=== PATIENT | female | born 1970 | race Caucasian/White ===

== ENCOUNTER → 2018-11-07 | Outpatient (CLI) | payer OTHER ==
[2018-11-07 12:43] LABS: African American GFR (CKD) >90 (>60 ml/min/1.73 sqM); Anion Gap 8 mmol/L; Blood Urea Nitrogen 14 mg/dL (7-17); Carbon Dioxide 24 mmol/L (22-30); Chloride 108 mmol/L (98-107); Glucose 92 mg/dL (74-99); Potassium 4.1 mmol/L (3.5-5.1); Sodium 140 mmol/L (137-145)
[2018-11-07 13:10] LABS: Basophils % (A) 1 %; Eosinophils # (A) 0.2 k/uL (0-0.7); Eosinophils % (A) 2 %; HCT 33.4 % (34.0-46.0); HGB 9.9 gm/dL (11.4-16.0); Hypochromasia Marked; Lymphocytes # (A) 1.4 k/uL (1.0-4.8); Lymphocytes % (A) 21 %; MCHC 29.5 g/dL (31.0-37.0); MCV 77.7 fL (80.0-100.0); Mean Platelet Volume 6.9; Monocytes # (A) 0.4 k/uL (0-1.0); Monocytes % (A) 6 %; Neutrophils # (A) 4.4 k/uL (1.3-7.7); Neutrophils % (A) 68 %; Platelet Count 306 k/uL (150-450); Poikilocytosis Slight; RDW 14.8 % (11.5-15.5); WBC 6.5 k/uL (3.8-10.6)
== END | disposition home or self-care (01) ==
LOC: LABPAT 11:23
PROVIDERS: ATTEND Obstetrics & Gynecology
DX: Z01.812 Encounter for preprocedural laboratory examination (principal); D64.9 Anemia, unspecified; D25.9 Leiomyoma of uterus, unspecified; N92.0 Excessive and frequent menstruation with regular cycle
CPT/HCPCS: 36415; 80051; 82565; 82947; 84520; 85025; 87086

== ENCOUNTER 2018-11-13 07:07 | Inpatient (IN) | payer OTHER ==
--- NOTE | 2018-11-09 10:59 | HP ---
HISTORY AND PHYSICAL DATE OF SURGERY: 11/13/2018 HISTORY OF PRESENT ILLNESS: The patient is a 47-year-old 5, para 5-0-0-5 who presented to the office after an initial emergency room visit at [facility] where she presented with a long-standing history of menorrhagia and a hemoglobin in the range of 5.5. She was not admitted for transfusion at that time, but treated with high dose oral contraceptive pills to control any immediate bleeding and then transitioned to once daily in a routine fashion. This led to actually excellent control and she was able to tolerate iron and rebuild her hemoglobin effectively. Examination demonstrates that she has a very large and irregular fibroid uterus. She is interested in definitive treatment and requested hysterectomy. She has a history of 3 previous sections and, given the size as well as the history, is only a candidate for abdominal approach. She was offered the opportunity to attempt to shrink the fibroids with Lupron in advance of potential da Jaret surgery and declined. PAST MEDICAL HISTORY: Significant for menorrhagia and anemia. She also has a congenital history of a ventricular septal defect, which has not caused problems. PAST SURGICAL HISTORY: Significant for section on 3 separate occasions. There are no apparent anesthetic concerns. OBSTETRICAL HISTORY: 5, para 5-0-0-5 with 2 term vaginal deliveries and 3 term sections without any apparent complications. Method of contraception is currently oral contraceptive pills. GYNECOLOGIC HISTORY: Unremarkable with no history of any infections to include STDs. FAMILY HISTORY: Noncontributory. SOCIAL HISTORY: The patient is and works for [employer]. She is a former smoker as early as the beginning of this year. She reports some alcohol and has a former history of multiple different controlled substances or drugs, but denies any current use. CURRENT MEDICATIONS: Current medications include iron daily, an allergy medication daily, a multivitamin daily and Desogen, or generic equivalent, daily. ALLERGIES: No known drug allergies. REVIEW OF SYSTEMS: Review of systems is confined to history of present illness. PHYSICAL EXAMINATION: Vital signs are stable and the patient is afebrile. In general, this is a well- developed, well-nourished white female in no acute distress. HEENT demonstrates PERRLA, EOMI, her oropharynx is clear. Her neck is supple and without adenopathy and the thyroid is normal to palpation. Her heart has regular rhythm and rate without murmur. Her lungs are clear to auscultation bilaterally in all nicolas. Her abdomen is nondistended, soft, nontender, with a palpable mass just below the umbilicus consistent with large fibroid uterus. She does have a deep vertical incisional scar present from her previous surgeries. Her extremities are without any cyanosis, clubbing, or edema and are nontender to palpation bilaterally. Pelvic examination demonstrates the large fibroid uterus as noted above. ASSESSMENT AND PLAN: Fibroid uterus, anemia, menorrhagia: We discussed multiple different options for treatment, particularly as she is currently controlled well on oral contraceptives. She has requested definitive treatment with hysterectomy. She additionally has requested to have her ovaries removed as he is already having symptoms of menopause. As a result, we will plan to proceed with total abdominal hysterectomy with bilateral salpingo-oophorectomy. The risks and complications of these procedures have been thoroughly discussed including the risks for bleeding, bleeding requiring transfusion, infection, and injury to local structures. These specifically include risk for injury to the bowel, bladder, and ureters. Specific attention was paid to the bladder and ureters given her history of multiple sections as well as the irregularity of the fibroid uterus, which could potentially bring the pelvic sidewall into play. She has understood all of this and has agreed to proceed. We therefore are scheduled for IVORY/BSO on the morning of Tuesday, November 13, 2018. MMODL / IJN: [id number] /
[~2018-11-13 07:07] MED LIST: HYDROmorphone 0.5 MG/0.5 ML SYRINGE IVP PRN; LIDOCAINE 1% 20 ML VIAL (10MG/ML) FOR IV START INTRADERMA PRN
[2018-11-13] MEDS: LACTATED RINGERS 1,000 ML IV SCH ×4 (07:40→23:06)
[2018-11-13] MEDS: ONDANSETRON 4 MG/2 ML VIAL IVP ONE ×2 (07:48→18:20)
[2018-11-13] MEDS: DEXAMETHASONE SOD PHOSPHATE 10 MG/ML 1 ML VIAL IV ONE ×2 (07:48→21:46)
[2018-11-13] MEDS ORDERED: MIDAZOLAM (PF) 2 MG/2 ML VIAL IVP ONE ×2 (08:43)
[2018-11-13] MEDS ORDERED: LIDOCAINE 1% INJ 10MG/ML (20 ML MDV) ONE (08:53)
[2018-11-13] MEDS ORDERED: fentaNYL (PF) 50 MCG/ML 2 ML AMP ONE (08:53)
[2018-11-13] MEDS ORDERED: PROPOFOL 10 MG/ML 20 ML VIAL IV ONE (08:53)
[2018-11-13] MEDS ORDERED: MORPHINE SULFATE (PF) 0.3 MG/0.3 ML SYR ONE (08:53)
[2018-11-13] MEDS ORDERED: ePHEDrine SULFATE/0.9% NACL/PF 50 MG/5 ML SYRINGE IV ONE (08:53)
[2018-11-13] MEDS ORDERED: GLYCOPYRROLATE 0.2 MG/ML 2 ML VIAL ONE (08:53)
[2018-11-13] MEDS ORDERED: ROCURONIUM BROMIDE 10 MG/ML 10 ML VIAL IV ONE (08:53)
[2018-11-13] MEDS ORDERED: NEOSTIGMINE 1 MG/ML 10 ML VIAL ONE (08:53)
[2018-11-13] MEDS ORDERED: KETOROLAC 30 MG/ML 1 ML VIAL IVP PRN (09:03)
[2018-11-13] MEDS ORDERED: ONDANSETRON 4 MG/2 ML VIAL IVP PRN (09:03)
[2018-11-13] MEDS ORDERED: SIMETHICONE 80 MG CHEWABLE PO PRN (09:03)
[2018-11-13] MEDS ORDERED: METOCLOPRAMIDE 5 MG/ML 2 ML VIAL IVP PRN (09:03)
[2018-11-13] MEDS ORDERED: diphenhydrAMINE 50 MG/ML 1 ML VIAL IVP PRN ×2 (09:03→11:17)
[2018-11-13] MEDS ORDERED: Acetaminophen-Codeine 300-30mg TAB PO PRN ×2 (09:03)
[2018-11-13] MEDS ORDERED: LACTATED RINGERS 1,000 ML IV ONE ×2 (10:12→11:25)
[2018-11-13] MEDS ORDERED: NALOXONE 0.4 MG/ML 1 ML VIAL IV PRN (11:17)
[2018-11-13] MEDS ORDERED: NALBUPHINE 10 MG/ML (1 ML AMP) IV PRN (11:17)
--- NOTE | 2018-11-13 11:28 | P.OP ---
Date of Procedure: 11/13/18 Preoperative Diagnosis: #1. Symptomatic fibroid uterus #2. Acute and chronic anemia Postoperative Diagnosis: Same plus #3. pelvic adhesive disease Procedure(s) Performed: #1. Total abdominal hysterectomy with bilateral salpingo-oophorectomy #2. Adhesiolysis Anesthesia: ANASTASIYA Surgeon: Jasson Cui Personal Protection Specialist #1: Amaya Gonzalez Estimated Blood Loss (ml): 650 IV fluids (ml): 1,700 Urine output (ml): 200 Pathology: other (Uterus tubes and ovaries) Condition: stable Disposition: PACU Operative Findings: Preoperatively the patient was noted to have a mass to just below the umbilicus consistent with the known fibroid uterus. Intraoperatively, the uterus was extraordinarily bulky with fibroids throughout the fundus and posterior portion of the uterus. Its mobility was significantly diminished by adhesions at the level of the bladder and adnexa likely from her previous sections. The ovaries were otherwise normal to inspection. During the case there was initially some pinkish urine noted in the catheter secondary to multiple manipulations the bladder in an attempt to create visualization. At the end of the case, the urine was clear. The total size of the uterus was approximately 20+ centimeters from cervix to fundus. It was removed in 2 pieces in order to remove the bulk of the fundus to create better visualization of the pelvis. The entire cervix appeared to have been removed. Description of Procedure: The patient was prepped and draped in usual fashion after general endotracheal anesthesia was administered by the anesthesiologist. A pre-existing vertical incision was used from just below the umbilicus to just at the pubic symphysis and the abdomen was entered without difficulty. There was some adhesions between the omentum and the anterior abdominal wall which were lysed were necessary. The uterus was noted filling the entire incision. The adnexa were noted to be normal. The bladder was noted to be significantly redundant also adhesed very high on the lower uterine segment. Attempts to deliver the uterus through the incision were unsuccessful. A Narciso O'Ferrer self-retaining retractor was placed and the bowel packed from the wound. The round ligaments were identified on each side, clamped with a Poca clamp, cut, and suture- ligated with a stitch of 0 Vicryl. A window was made in the posterior leaf of the peritoneum to identify and isolate the infundibulopelvic ligament on each side allowing it to be clamped with a curved Aliya-Poca clamp, cut, and suture-ligated with a transfixion stitch of 0 Vicryl followed by a free tie of 0 Vicryl. The bladder peritoneum was developed but visualization was extraordinarily difficult. The decision was made to remove the retractor and extended the incision. The incision was extended above the umbilicus by approximately 4 cm and the O'Narciso-O'Ferrer retractor replaced with a Ysabel retractor. The bowel was again packed from the wound. The uterine vasculature was skeletonized on each side and serial bites taken with curved Aliya- Poca clamps down the cardinal ligament each being cut and suture-ligated with a transfixion stitch of 0 Vicryl. After it was felt that all of the uterine vasculature had been adequately controlled and that the cervix was near the distal part of the dissection, the cautery was utilized to divide the fundus of the uterus from the lower segment of the uterus to make visualization significantly better. The margins of the uterus as well as the fibroids that were visualized within were grasped with Cadogan clamps were tied clamps. The bladder peritoneum was then further reflected distally. Serial bites were taken down the broad ligaments towards the cervix with straight Trenton Poca clamps. Each was cut and suture ligated with transfixion stitches of 0 Vicryl. At the angle of the cervix, curved Aliya-Poca clamps utilized to come underneath the cervix allowing the remainder of the specimen to be amputated from the patient and placed at the remainder of the specimen where pictures were documented. The 2 angles of the vagina were stitch with transfixion stitches of 0 Vicryl and then the intervening open vaginal cuff closed with a running locking stitch of 0 Vicryl from margin to margin. Thorough irrigation was carried out. Any small points of bleeding were made hemostatic with the Bovie. Once hemostasis was assured, all instrumentation and packing were removed. Sponge counts were correct prior to closing and after closing. The fascia was grasped with the inferior and superior ends with Chet clamps and closed with a running stitch of #1 looped PDS. The subcutaneous tissues were then undermined as the skin significantly docked into the abdominal wall. Any points of bl eeding were made hemostatic with the Bovie. The subcutaneous tissues were then reapproximated with a running stitch of 2-0 Vicryl. The skin was reapproximated with regular surgical gerardo. All sponge, instrument, and needle counts were correct. Estimated blood loss for the case is approximately 650 mL. There were no complications though the case was extraordinarily difficult. The patient to lerated the procedure well and proceeded to the recovery room in stable condition.
[2018-11-13 13:05] VITALS: BMI 36.9
[2018-11-13 15:06] LABS: HCT 28.9 % (34.0-46.0); HGB 8.8 gm/dL (11.4-16.0); Hypochromasia Marked; MCH 23.2 pg (25.0-35.0); MCHC 30.5 g/dL (31.0-37.0); MCV 76.1 fL (80.0-100.0); Mean Platelet Volume 6.5; Microcytosis Slight; Platelet Count 286 k/uL (150-450); Poikilocytosis Slight; RDW 14.8 % (11.5-15.5); WBC 15.8 k/uL (3.8-10.6)
[2018-11-13] MEDS: SENNOSIDES-DOCUSATE SODIUM 1 EACH TAB PO SCH (21:47)
[2018-11-14] MEDS: LACTATED RINGERS 1,000 ML IV SCH ×2 (05:18→10:18)
--- NOTE | 2018-11-14 06:30 | P.PN ---
Progress Note - Text Progress Note Date: 11/14/18 Pt without complaints. Ambulating w/o weakness or paresthesia. Pain controlled. Pruritis controlled. Denies headache. VSS Back - puncture site clean and dry A/P POD#1 s/p IVORY w/ spinal duramorph and GA - doing well
[2018-11-14 07:26] LABS: Basophils # (A) 0.1 k/uL (0-0.2); Basophils % (A) 1 %; Eosinophils # (A) 0.1 k/uL (0-0.7); Eosinophils % (A) 1 %; HCT 28.2 % (34.0-46.0); HGB 7.9 gm/dL (11.4-16.0); Hypochromasia Marked; Lymphocytes # (A) 1.2 k/uL (1.0-4.8); Lymphocytes % (A) 10 %; MCH 21.3 pg (25.0-35.0); MCHC 28.1 g/dL (31.0-37.0); MCV 75.9 fL (80.0-100.0); Mean Platelet Volume 6.5; Microcytosis Slight; Monocytes # (A) 0.8 k/uL (0-1.0); Monocytes % (A) 7 %; Neutrophils # (A) 10.1 k/uL (1.3-7.7); Neutrophils % (A) 81 %; Platelet Count 316 k/uL (150-450); Poikilocytosis Slight; RBC 3.72 m/uL (3.80-5.40); RDW 14.9 % (11.5-15.5); WBC 12.4 k/uL (3.8-10.6)
--- NOTE | 2018-11-14 08:45 | P.PN ---
Subjective Progress Note Date: 11/14/18 The patient denies any significant ongoing nausea. She additionally denies any flatus. Pain is moderately well controlled. She has been up and ambulatory and is having no difficulty with voiding. She does report hunger. Objective - Vital Signs Vital signs: Vital Signs Temp 97.7 F 11/13/18 23:53 Pulse 81 11/13/18 23:53 Resp 18 11/14/18 06:30 BP 120/72 11/13/18 23:53 Pulse Ox 97 11/13/18 23:53 Intake & Output 11/13/18 11/14/18 11/14/18 18:59 06:59 18:59 Intake Total 2500 Output Total 1650 900 Balance 850 -900 Weight 94.801 kg Intake: IV 2050 Intake, IV Titration 400 Amount Lactated Ringers 1,000 ml 400 @ 100 mls/hr IV .Q10H [facility] Rx#:[id number] Oral 50 Output: Urine 1000 900 Uretheral (Camp) 500 Estimated Blood Loss 650 Other: Voiding Method Indwelling Catheter # Voids 1 - Exam In general, this is a well-developed, well-nourished white female in no acute distress. Her abdomen is nondistended, is soft, with appropriate tenderness and no evidence of masses. The incision is clean, dry, and intact following removal of the dressing. Her extremities are without any cyanosis, clubbing, or edema and are nontender to palpation bilaterally. - Labs CBC & Chem 7: 11/14/18 07:08 Labs: Abnormal Lab Results - Last 24 Hours (Table) 11/13/18 11/14/18 Range/Units 14:44 07:08 WBC 15.8 H 12.4 H (3.8-10.6) k/uL RBC 3.72 L (3.80-5.40) m/uL Hgb 8.8 L 7.9 L (11.4-16.0) gm/dL Hct 28.9 L 28.2 L (34.0-46.0) % MCV 76.1 L 75.9 L (80.0-100.0) fL MCH 23.2 L 21.3 L (25.0-35.0) pg MCHC 30.5 L 28.1 L (31.0-37.0) g/dL Neutrophils # 10.1 H (1.3-7.7) k/uL Assessment and Plan (1) Chronic blood loss anemia Current Visit: Yes Status: Acute Code(s): D50.0 - IRON DEFICIENCY ANEMIA SECONDARY TO BLOOD LOSS (CHRONIC) SNOMED Code(s): 015873712 (2) Fibroid uterus Current Visit: Yes Status: Acute Code(s): D25.9 - LEIOMYOMA OF UTERUS, UNSPECIFIED SNOMED Code(s): 81302753 Plan: Continue routine postoperative care. I have advanced her diet to clear liquids but will await flatus prior to advancing to a regular diet. She otherwise has been encouraged ambulate in the hallways routinely. Hemoglobin appears to be stable.
[2018-11-14] MEDS: SENNOSIDES-DOCUSATE SODIUM 1 EACH TAB PO SCH ×2 (09:47→20:33)
[2018-11-14] MEDS: IBUPROFEN 600 MG TAB PO PRN (15:09)
[2018-11-15] MEDS: LACTATED RINGERS 1,000 ML IV SCH ×2 (01:36→07:41)
[2018-11-15] MEDS: IBUPROFEN 600 MG TAB PO PRN (03:31)
[2018-11-15] MEDS: SENNOSIDES-DOCUSATE SODIUM 1 EACH TAB PO SCH (08:35)
[2018-11-15 08:38] VITALS: BP 106/72; PULSE 103; RESP 24; TEMP 97.6
--- NOTE | 2018-11-15 08:45 | P.DS ---
Providers Date of admission: 11/13/18 07:07 Expected date of discharge: 11/15/18 Attending physician: Jasson Cui Primary care physician: Stated None - Discharge Diagnosis(es) (1) Chronic blood loss anemia Current Visit: Yes Status: Acute (2) Fibroid uterus Current Visit: Yes Status: Acute Hospital Course: The patient is a 47-year-old 5 para [id number] presented to the office after an ER visit with significant anemia secondary to vaginal bleeding. She was found with a very large irregular fibroid uterus filling most of the lower abdomen. The bleeding was ultimately controlled with oral contraceptive pills to the point that she was able to rebuild her hemoglobin and had requested hysterectomy. She was given the option of attempting to shrink the uterus using Lupron versus proceeding directly with abdominal hysterectomy. She chose the latter option. She was therefore taken to the operating room where she underwent a very difficult total abdominal hysterectomy with bilateral salpingo- oophorectomy in an otherwise uncomplicated fashion. Her postoperative course was also unremarkable with vital signs remained stable and her temperature was afebrile throughout. She was tolerating regular diet by the morning of postoperative day #2 and was therefore discharged home on the afternoon of postoperative day #2. She is instructed to follow-up in the office in 1 week for staple removal and recheck as well as 6 weeks for routine postoperative check. Discharge instructions included calling for any significantly increased bleeding, fever, abdominal pain, incisional complaints, urinary or GI complaints, or anything else that concerned her. She was additionally ins tructed to have nothing in the vagina for at least 6 weeks time to include intercourse. She was less instructed to do no driving until off of all pain medications or 2 weeks' time, whichever came first. She understood her instructions and agrees follow up as noted above. Discharge medications included only [id number] analgesic pain medications as well as any home medications she may be taking. She was additionally instructed to continue iron sulfate 325 mg 1-2 daily for at least a month in order to continue to rebuild her hemoglobin. Discharge hemoglobin and hematocrit were 7.9 and 28.2 respectively. Procedures: #1. Total abdominal hysterectomy with bilateral salpingo-oophorectomy Patient Condition at Discharge: Stable Plan - Discharge Summary Discharge Rx Participant: Yes New Discharge Prescriptions: No Action Ferrous Sulfate [Iron] 325 mg PO DAILY Allergy Med Otc (Unknown Name) 1 tab PO DAILY PRN PRN Reason: Allergy Symptoms 1 tab PO DAILY Discharge Medication List Allergy Med Otc (Unknown Name) 1 tab PO DAILY PRN 11/07/18 [History] Ferrous Sulfate [Iron] 325 mg PO DAILY 11/07/18 [History] 1 tab PO DAILY 11/13/18 [History] Follow up Appointment(s)/Referral(s): Jasson Cui MD [STAFF PHYSICIAN] - 1 Week
[2018-11-15] MEDS ORDERED: diphenhydrAMINE 25 MG CAP PO PRN (12:23)
== END 2018-11-15 13:26 | disposition home or self-care (01) | DRG 742 ==
LOC: 2ORMAIN 07:07 → 4FBP 11:27 → 6PED 11-14 09:57
PROVIDERS: ADMIT Obstetrics & Gynecology; ATTEND Obstetrics & Gynecology
PROC: 0UT20ZZ Resection of Bilateral Ovaries, Open Approach (ICD-10-PCS; 2018-11-13)
PROC: 0UT70ZZ Resection of Bilateral Fallopian Tubes, Open Approach (ICD-10-PCS; 2018-11-13)
PROC: 0UT90ZZ Resection of Uterus, Open Approach (ICD-10-PCS; principal; 2018-11-13 08:45)
DX: N92.0 Excessive and frequent menstruation with regular cycle (principal); Q21.0 Ventricular septal defect; D25.9 Leiomyoma of uterus, unspecified; D50.0 Iron deficiency anemia secondary to blood loss (chronic); L29.9 Pruritus, unspecified; Z87.891 Personal history of nicotine dependence; Z98.891 History of uterine scar from previous surgery
CPT/HCPCS: 85025; 85027; 86850; 86900; 86901; 88307

== ENCOUNTER → 2020-10-09 | Outpatient (CLI) | payer OTHER ==
--- NOTE | 2020-10-13 09:18 | MM ---
Reason for exam: screening (asymptomatic). Baseline mammogram. History: Patient is postmenopausal. Family history of breast cancer in maternal grandmother. Physical Findings: Nurse did not find any significant physical abnormalities on exam. MG Screening Mammo w CAD Bilateral CC and MLO view(s) were taken. The breast tissue is almost entirely fat. Finding: There are intermediate concern, suspicious coarse heterogeneous, grouped/clustered calcifications in the middle position of the right breast, 11cm from the nipple. ASSESSMENT: Incomplete: need additional imaging evaluation, BI-RAD 0 RECOMMENDATION: Special view mammogram of the right breast. [facility] will attempt to contact patient to return for supplemental views.
== END | disposition home or self-care (01) ==
LOC: RADMAMWWP 10:19
PROVIDERS: ATTEND Family Medicine
DX: Z12.31 Encounter for screening mammogram for malignant neoplasm of breast (principal); Z78.0 Asymptomatic menopausal state; Z80.3 Family history of malignant neoplasm of breast
CPT/HCPCS: 77067

== ENCOUNTER → 2020-10-21 | Outpatient (CLI) | payer OTHER ==
--- NOTE | 2020-10-23 10:19 | MM ---
Reason for exam: additional evaluation requested from abnormal screening. Last mammogram was performed less than 1 month ago. History: Patient is postmenopausal. Family history of breast cancer in maternal grandmother. Physical Findings: Breast exam preformed at baseline screening. MG Work Up Mamm w CAD RT CC with magnification, LM with magnification, and LM view(s) were taken of the right breast. Prior study comparison: October 09, 2020, bilateral MG screening mammo w CAD. Finding: There are indeterminate calcifications in the upper outer quadrant of the right breast. These results were verbally communicated with the patient and result sheet given to the patient on 10/21/20. ASSESSMENT: Suspicious, BI-RAD 4 RECOMMENDATION: Surgical consultation and stereotactic core biopsy of the right breast. Called Dr. Ogden's office with mammographic findings and has scheduled an appointment for the patient for 11/05/20 at 11:[address] Naranjo. Biopsy scheduled for 10/27/20 at 9:30. PRELIMINARY REPORT CALLED AND FAXED TO DR. NARANJO ON 10/23/20.
== END | disposition home or self-care (01) ==
LOC: RADMAMWWP 15:00
PROVIDERS: ATTEND Family Medicine
DX: R92.1 Mammographic calcification found on diagnostic imaging of breast (principal); Z78.0 Asymptomatic menopausal state; Z80.3 Family history of malignant neoplasm of breast
CPT/HCPCS: 77065

== ENCOUNTER → 2020-10-27 | Day surgery (SDC) | payer OTHER ==
[2020-10-27 09:49] VITALS: RESP 12
[2020-10-27 10:33] VITALS: BP 108/75; PULSE 80; TEMP 98.5
--- NOTE | 2020-10-27 12:08 | MM ---
Stereotactic Mammotome core biopsy right breast. HISTORY: R92.8 abnormal mammogram The left in question within the right breast were targeted by the undersigned. Procedure was performed by the undersigned. Informed consent was obtained and all of the patients questions were answered. The standard sterile technique was utilized and appropriate local anesthesia was obtained with 1% lidocaine. Mammotome probe was advanced and multiple core samples were obtained and sent to pathology for interpretation. Microclip marker was deployed at the site of biopsy. Post procedural mammogram demonstrates appropriate deployment of radiopaque clip marker. The patient tolerated the procedure well and left the department in stable condition. Pathology results are pending. IMPRESSION: Successful stereotactic core biopsy right breast with pathology results pending. Pathology Results: Benign RIGHT BREAST, STEREOTACTIC CORE BIOPSY: Fibroadenomatoid hyperplasia with calcifications in a background of fibrocystic changes. Recommendation Follow up mammogram of the right breast in 6 months. TATIANNA
== END ==
LOC: RADMAMWWP 09:33
PROVIDERS: ATTEND Student in an Organized Health Care Education/Training Program
DX: N62 Hypertrophy of breast (principal)
CPT/HCPCS: 19081; 88305; A4648; J2001

== ENCOUNTER → 2020-11-27 | Day surgery (SDC) | payer OTHER ==
[2020-11-25 14:18] VITALS: BMI 37.3
[~2020-11-27] MED LIST changes: -HYDROmorphone 0.5 MG/0.5 ML SYRINGE IVP PRN; +LACTATED RINGERS 1,000 ML IV ONE; +LACTATED RINGERS 1,000 ML IV SCH; +LIDOCAINE 1% (10MG/ML) FOR IV START INTRADERMA PRN; -LIDOCAINE 1% 20 ML VIAL (10MG/ML) FOR IV START INTRADERMA PRN; +PROPOFOL 10 MG/ML 20 ML VIAL IV ONE
[2020-11-27 09:57] VITALS: TEMP 97.8
--- NOTE | 2020-11-27 11:32 | P.GSHP ---
History of Present Illness H&P Date: 11/27/20 Chief Complaint: Screening colonoscopy This is a 49-year-old female who presents today for screening colonoscopy. Patient denies any significant GI complaints. Past Medical History Additional Past Medical History / Comment(s): hx MENORRHAGIA, ANEMIA, ENVIRONMENTAL ALLERGIES. History of Any Multi-Drug Resistant Organisms: None Reported Past Surgical History: Section, Hysterectomy Additional Past Surgical History / Comment(s): c section x2 Past Anesthesia/Blood Transfusion Reactions: No Reported Reaction Smoking Status: Former smoker - Past Family History Mother Family Medical History: No Reported History Medications and Allergies Home Medications Medication Instructions Recorded Confirmed Type Ascorbic Acid/Collagen Hydr 1 each PO DAILY 11/25/20 11/25/20 History [Collagen Plus Vit C Capsule] Calcium Carbonate [Calcium] 600 mg PO DAILY 11/25/20 11/25/20 History Cholecalciferol [Vitamin D3 (25 50 mcg PO DAILY 11/25/20 11/25/20 History Mcg = 1000 Iu)] Garlic 1 tab PO DAILY 11/25/20 11/25/20 History Magnesium 250 mg PO DAILY 11/25/20 11/25/20 History Menopausal Supplement 1 tab PO DAILY 11/25/20 11/25/20 History Myra-3 Fatty Acids/Fish Oil [Fish 1 each PO DAILY 11/25/20 11/25/20 History Oil 1,000 mg Softgel] Turmeric Root Extract [Turmeric] 1,600 mg PO DAILY 11/25/20 11/25/20 History Allergies Allergy/AdvReac Type Severity Reaction Status Date / Time No Known Allergies Allergy Verified 11/25/20 14:10 Surgical - Exam Vital Signs Temp Pulse Resp BP Pulse Ox 97.8 F 88 18 168/78 98 11/27/20 09:56 11/27/20 09:56 11/27/20 09:56 11/27/20 09:56 11/27/20 09:56 - General well developed, well nourished, no distress - Eyes PERRL - ENT normal pinna - Neck no masses - Respiratory normal expansion - Cardiovascular Rhythm: regular - Abdomen Abdomen: soft, non tender Assessment and Plan Assessment: We'll perform screening colonoscopy.
--- NOTE | 2020-11-27 11:45 | P.OP ---
Date of Procedure: 11/27/20 Preoperative Diagnosis: Screening colonoscopy Postoperative Diagnosis: Diverticulosis Procedure(s) Performed: Colonoscopy Anesthesia: MAC Surgeon: Jamel Vincent Pathology: none sent Condition: stable Disposition: PACU Description of Procedure: Patient's placed on the endoscopy table in the lateral position. She received IV sedation. Digital rectal exam was performed which revealed no abnormalities. Flexible colonoscope was then placed patient anus passed throughout the colon. Scope was passed beyond the left colon secondary to tortuosity valve. Scope was then withdrawn. There was evidence of diverticulosis in the descending and sigmoid colon. The scope summer back the rectum this appeared normal. Scope was withdrawn for patient. Patient was scheduled for a barium to evaluate the right colon.
[2020-11-27 11:53] VITALS: RESP 16
[2020-11-27 12:18] VITALS: BP 128/70; PULSE 70
--- NOTE | 2020-11-27 15:03 | FL ---
EXAMINATION TYPE: FL barium enema DATE OF EXAM: 11/27/2020 COMPARISON: NONE HISTORY: DIVERTICULOSIS UNABLE TO SEE ALL COLON COLONOSCOPY TECHNIQUE: An air contrast barium enema study is performed. A total of 144 seconds of fluoroscopic t volodymyr was utilized during procedure and 20 images obtained. FINDINGS: Financing Analyst view of the abdomen shows overall non-obstructive bowel gas pattern. No evidence of any mass or polyp, obstructing or constricting lesion throughout the colon. Moderate s igmoid diverticulosis with circular muscle hypertrophy. No evidence for diverticulitis. Appendix was filled and appeared normal. The terminal ileum was refluxed and appears within normal l imits. IMPRESSION: 1. Moderate sigmoid diverticulosis with circular muscle hypertrophy. No evidence for diverticulitis.
== END | disposition home or self-care (01) ==
LOC: ORWHC2ENDO 09:26
PROVIDERS: ATTEND Surgery
DX: Z12.11 Encounter for screening for malignant neoplasm of colon (principal); K57.30 Diverticulosis of large intestine without perforation or abscess without bleeding; Q43.8 Other specified congenital malformations of intestine; Z98.891 History of uterine scar from previous surgery; Z90.710 Acquired absence of both cervix and uterus; Z87.891 Personal history of nicotine dependence; N92.0 Excessive and frequent menstruation with regular cycle; D64.9 Anemia, unspecified; Z91.09 Other allergy status, other than to drugs and biological substances
CPT/HCPCS: 74270; J2704; G0121; 45378